=== PATIENT | female | born 1965 | race Caucasian/White ===

== ENCOUNTER 2020-06-27 09:40 | Day surgery (SDC) | payer OTHER ==
[2020-06-23 13:26] VITALS: BMI 27.4
[2020-06-27] MEDS ORDERED: methylPREDNISolone ACET (DEPO) 40 MG/1 ML VIAL ONE ×2 (12:43→13:26)
[2020-06-27] MEDS ORDERED: MIDAZOLAM HCL 2 MG/2 ML SINGLE DOSE VIAL ONE (12:44)
[2020-06-27] MEDS ORDERED: BUPIVACAINE HCL/PF 0.25% (2.5MG/ML) 10 ML VIAL ONE (13:26)
[2020-06-27] MEDS ORDERED: ONDANSETRON 4 MG/2 ML VIAL IVPUSH PRN (13:57)
[2020-06-27] MEDS ORDERED: LACTATED RINGERS SOLUTION 1,000 ML IV SCH (14:00)
[2020-06-27] MEDS ORDERED: BUPIVACAINE HCL/PF 0.25% (2.5MG/ML) 10 ML VIAL IJ ONE (14:05)
[2020-06-27] MEDS ORDERED: methylPREDNISolone ACET (DEPO) 40 MG/1 ML VIAL IM ONE (14:06)
[2020-06-27] MEDS ORDERED: ONDANSETRON 4 MG/2 ML VIAL ONE (14:33)
[2020-06-27 16:49] VITALS: BP 126/79; PULSE 71; TEMP 98
== END 2020-06-27 16:49 | disposition home or self-care (01) ==
LOC: FASU 09:40
PROVIDERS: ATTEND Orthopaedic Surgery Adult Reconstructive Orthopaedic Surgery
PROC: 0SCC4ZZ Extirpation of Matter from Right Knee Joint, Percutaneous Endoscopic Approach (ICD-10-PCS; 2020-06-27)
PROC: 3E0U33Z Introduction of Anti-inflammatory into Joints, Percutaneous Approach (ICD-10-PCS; 2020-06-27)
PROC: 0SCC4ZZ Extirpation of Matter from Right Knee Joint, Percutaneous Endoscopic Approach (ICD-10-PCS; principal; 2020-06-27 11:00)
DX: M17.0 Bilateral primary osteoarthritis of knee (principal); M25.561 Pain in right knee; M25.562 Pain in left knee
CPT/HCPCS: 94760